=== PATIENT | female | born 1945 | race Caucasian/White ===

== ENCOUNTER → 2017-07-15 | Outpatient (CLI) | payer MEDICARE ==
[~2017-07-15] MED LIST: ACET500T13 PO; ASPI1TAB57 PO; CALC1TAB16 PO; COLA100C OR; ENOX40P SQ; FERR324T4 PO; FIBE625T10 PO; HYDR-3516 PO; IBUP200T47 PO; LEVO75TA3 PO; LEVO75TA42 PO; LOSA100T PO; METO50TA PO; MIRA33502 PO; MS C30TA5 PO; MULT-65 PO; NEXI40CA PO; OXYC-360 PO; PANT40TA3 PO; SIMV20 PO; SIMV20TA PO; SUCR1TAB PO; TOPR50TA PO; VITA100018 PO
[2017-07-15 08:40] LABS: AUTOMATED NEUTROPHIL # 3.3 TH/MM3 (1.8-7.7); BASOPHIL % 0.3 % (0.0-2.0); EOSINOPHIL # 0.2 TH/MM3 (0-0.4); EOSINOPHIL % 3.3 % (0.0-4.0); HEMATOCRIT 36.3 % (35.0-46.0); HEMOGLOBIN 12.2 GM/DL (11.6-15.3); LYMPH % 22.4 % (9.0-44.0); LYMPHOCYTE # 1.2 TH/MM3 (1.0-4.8); MEAN CORPUSCULAR HGB CONC 33.8 % (32.0-36.0); MEAN PLATELET VOLUME 7.4 FL (7.0-11.0); MONO % 9.7 % (0.0-8.0); MONOCYTE # 0.5 TH/MM3 (0-0.9); NEUT % 64.3 % (16.0-70.0); PLATELET COUNT 212 TH/MM3 (150-450); RED BLOOD COUNT 4.37 MIL/MM3 (4.00-5.30); RED CELL DISTRIBUTION WIDTH 15.3 % (11.6-17.2); WHITE BLOOD COUNT 5.2 TH/MM3 (4.0-11.0)
[2017-07-15 08:51] LABS: PROTHROMBIN TIME - PATIENT 10.6 SEC (9.8-11.6)
[2017-07-15 08:59] LABS: BILIRUBIN, URINE NEG (NEG); BLOOD, URINE MOD (NEG); GLUCOSE,URINE NEG (NEG); KETONE, URINE NEG (NEG); MUCUS URINE FEW /lpf (OCC); NITRITE,URINE NEG (NEG); PH, URINE 6.5 (5.0-8.5); SQUAMOUS EPITHELIAL CELL URINE <1 /hpf (0-5); URINE COLOR YELLOW (YELLW/STRAW); URINE LEUKOCYTE ESTERASE NEG (NEG)
[2017-07-15 09:05] LABS: ALBUMIN 3.6 GM/DL (3.4-5.0); ALT (GPT) 23 U/L (10-53); AST (GOT) 21 U/L (15-37); BICARBONATE 26.3 MEQ/L (21.0-32.0); BLOOD UREA NITROGEN 14 MG/DL (7-18); CALCIUM 9.2 MG/DL (8.5-10.1); CHLORIDE 105 MEQ/L (98-107); CREATININE 0.79 MG/DL (0.50-1.00); GLOMERULAR FILTRATION RATE 72 ML/MIN (>89); GLUCOSE,FASTING 101 MG/DL (74-99); SODIUM (NA) 140 MEQ/L (136-145)
[2017-07-15 09:08] LABS: ALKALINE PHOSPHATASE 72 U/L (45-117); TOTAL BILIRUBIN ADULT 0.9 MG/DL (0.2-1.0); TOTAL PROTEIN 7.3 GM/DL (6.4-8.2)
--- NOTE | 2017-07-15 09:48 | RADRPT ---
EXAM DATE: 07/15/2017 9:34 AM EDT AGE/SEX: 72 years / Female INDICATIONS: Evaluate for pneumonia, pneumothorax, or communicable disease. Pre op for lumbar nehal ctomy. CLINICAL DATA: This is the patient's initial encounter. Patient reports that signs and symptoms have been present for 1 day and indicates a pain score of 0/10. MEDICAL/SURGICAL HISTORY: Hypercholesterolemia. Irritable bowel syndrome. Gastroesophageal re flux disease. Thyroid disease. Gastric ulcer. Total knee replacement, left. Total knee replacemen t, right. COMPARISON: No prior [facility] exams available for comparison. FINDINGS: PA and lateral views of the chest demonstrate the lungs to be symmetrically aerated without evidence of mass, infiltrate or effusion. The cardiomediastinal contours are unremarkable. Osseous structures are intact. CONCLUSION: No acute cardiopulmonary disease. Electronically signed by: Giorgi Mejia MD 07/15/2017 9:47 AM EDT
--- NOTE | 2017-07-15 14:40 | EKG ---
Date Performed: 07/15/2017 Time Performed: 08:36:42 PTAGE: 72 years EKG: Sinus rhythm POSSIBLE RIGHT VENTRICULAR CONDUCTION DELAY BORDERLINE ECG NO PREVIOUS TRACING DOCTOR: Calvin Hinson Interpretating Date/Time 07/15/2017 14:40:05
== END ==
LOC: CPRE 08:01
PROVIDERS: ATTEND Neurological Surgery
DX: Z01.812 Encounter for preprocedural laboratory examination (principal); Z01.811 Encounter for preprocedural respiratory examination; Z01.810 Encounter for preprocedural cardiovascular examination; M48.062 Spinal stenosis, lumbar region with neurogenic claudication; R94.31 Abnormal electrocardiogram [ECG] [EKG]
CPT/HCPCS: 36415; 71046; 80053; 81001; 85025; 85610; 85730; 87640; 87641; 93005

== ENCOUNTER 2017-07-21 06:16 | Observation (INO) | payer MEDICARE ==
[~2017-07-21] VITALS: Ht 166.4 cm; Wt 84.7 kg
[~2017-07-21 06:16] MED LIST changes: -COLA100C OR; -ENOX40P SQ; -FERR324T4 PO; -HYDR-3516 PO; -LEVO75TA42 PO; -MIRA33502 PO; -MS C30TA5 PO; -NEXI40CA PO; -OXYC-360 PO; -SIMV20 PO; -SUCR1TAB PO; -TOPR50TA PO
[2017-07-21] MEDS ORDERED: METOPROLOL TARTRATE 25 MG TAB PO PRN (07:30)
[2017-07-21] MEDS ORDERED: LACTATED RINGER'S 1000 ML IV PRN (07:30)
[2017-07-21] MEDS ORDERED: SODIUM CHLORID 0.9% 500 ML IV PRN (07:30)
[2017-07-21] MEDS ORDERED: POVIDONE IODINE 5% (ANTISEPSIS KIT) 4 APPLICATIONS EACH NARE PRN (07:30)
[2017-07-21] MEDS ORDERED: CHLORHEXIDINE GLUCONATE 2 % 1 PACK (2 CLOTHS) TOPICAL PRN (07:30)
[2017-07-21] MEDS ORDERED: ARTIFICIAL TEARS OPTH OINT 3.5 APPLIC/3.5 GM TUBO ONE (07:47)
[2017-07-21] MEDS ORDERED: ACETAMINOPHEN 1000 MG/100 ML 100 ML IV ONE (07:48)
[2017-07-21] MEDS ORDERED: ceFAZolin 2 GM PREMIX 0 ML ONE (08:07)
[2017-07-21] MEDS ORDERED: SODIUM CHLOR 0.9% 250 ML INJ 250 ML ONE (08:07)
[2017-07-21] MEDS ORDERED: VANCOMYCIN HCL 1000 MG VIAL ONE (08:07)
[2017-07-21] MEDS ORDERED: THROMBIN (TOPICAL) 5,000 UNIT VIAL ONE (08:07)
[2017-07-21] MEDS ORDERED: methylPREDNISolone ACETATE 40 MG/ML VIAL ONE (08:07)
[2017-07-21] MEDS ORDERED: BUPIVACAINE/EPINEPHRINE 0.5% PF 10 ML VIAL ONE (08:07)
[2017-07-21] MEDS ORDERED: GENTAMICIN SULFATE 80 MG/2 ML VIAL ONE (08:08)
[2017-07-21] MEDS ORDERED: GELFOAM SIZE 100 ONE (08:08)
[2017-07-21] MEDS ORDERED: VANCOMYCIN 1 GM/200 ML PREMIX IV SCH (08:15)
--- NOTE | 2017-07-21 11:11 | PD.OP ---
Operative Report Date of Surgery: Jul 21, 2017 Preoperative Diagnosis: Lumbar spinal stenosis Postoperative Diagnosis: Lumbar spinal stenosis Procedure: L3-4, L4-5 right decompressive hemilaminectomy, mesiofatetectomy, foraminotomy, microsurgical resection of the disk Anesthesia: general Surgeon: Donovan Wray Front Maker(s): Savannah Arboleda Operation and Findings: INDICATIONS FOR THE SURGICAL PROCEDURE Ms Nino is a 72 year-old female who presented with intractable back pain and clinical evidence of right L4 and L5 lower extremity radiculopathy. She was found to have significant lumbar spinal stenosis with significant mass effect on the neural structures which correlated with the clinical symptoms. The patient has failed maximum nonsurgical management including multiple modalities of conservative treatment as well as pain management interventions by an interventional pain specialist. A surgical decompression was indicated as a last resort. The [id number] details of the procedure, indications, alternatives, risks and potential complications were fully discussed with the patient. The patient fully understood. All the questions were answered. No guarantees were given. The patient voiced requesting the procedure and provided informed consents. The patient was offered the alternative of delaying the procedure and continuing with nonsurgical management. DETAILS OF THE SURGICAL PROCEDURE After the induction of general anesthesia, endotracheal intubation was performed. A Arredondo catheter, bilateral MARCIAL hose and sequential compression devices were placed and kept throughout the procedure. The patient was positioned prone on a Ravin table over a Solomon frame. All pressure points were carefully padded with eggcrate mattress. The eyes were tapped shut after ointment was applied by the anesthesiologist to prevent corneal abrasion. A Kranthi hugger was placed over the exposed lower body to maintain control of the core body temperature. The lower lumbar region was prepped and draped in the usual sterile fashion. A spinal needle was placed for localization and an x- ray performed with a C-arm. A skin incision was made in the midline over the spinous processes L3-L5 with a #10 blade. Small subcutaneous bleeders were controlled with a bipolar and the dissection was carried out through the lumbar fascia exposing the spinous processes. A subperiostial dissection was performed with a Hahn elevator and a Bovie over the L3, L4, L5 spinous process lamina and facets. A microdiscectomy self-retaining retractor was placed on the incision and an x-ray was obtained with an instrument placed underneath the lamina of L4. At this point in the procedure the operating microscope was draped in the usual sterile fashion and brought to the field. The rest of the surgical procedure was performed using microsurgical dissection technique with exception of the closure. Once the level was confirmed, a decompressive laminectomy was performed at L3-4 , L4-5 on the right side using the TPS drill with an 4mm drill bit. A medial facetectomy was performed and the superior free border of the ligamentum flavum was dissected with a ligament dissector and removed with a thin footplate 2 mm Kerrison. The medial facetectomy was done and the L4 and L5 nerve roots were identified and followed towards their exit in the foramen. Epidural veins located laterally to the dural sac were coagulated with a bipolar and incised with microscissors. Gentle medial retraction of the dural sac allowed inspection of the disc space. The patient had severe facet arthropathy with hypertrhopy of the joint facets and ligamentum flavum resulting in mass effect over the dural sac and nerve roots. In addition, there was a broad-based disc protusion, contributing to the stenosis. The annulus fibrosus of the disc was coagulated with the bipolar and incised with an 11 blade. The extruded disc was carefully dissected from the surrounding tissue and removed with pituitary forceps. Then, a microdiscectomy was carried out in the standard fashion using straight and up-biting pituitary forceps. An excellent decompression of the dural sac and nerve root was achieved. The exit of the nerve root was inspected for residual disc fragments and hemostasis was secured with the bipolar. The incision was irrigated with a large amount of saline solution. A Valsalva maneuver failed to show any cerebrospinal fluid leak or bleeding. The decompression was assessed again and found to be satisfactory. The incision was then closed in layers. The fascia was closed with 0 Vicryl sutures in an interrupted fashion. The superficial fascia was closed with 0 Vicryl sutures. The fascia was infiltrated with 0.5% Marcaine with epinephrine 1:100,000 dilution. The subcutaneous tissue was irrigated then closed with 0 Vicryl and 3 -0 Vicryl. The skin was closed with 4-0 running subcuticular Vicryl. A sterile dressing was applied. At the end of the procedure, the sponge, needle and instrument counts were all correct. Estimated blood loss was less than 100 cc. No blood transfusion was given. No intraoperative complications occurred. The patient received prophylactic antibiotics. The patient was then extubated and transferred to the recovery room in stable condition. Donovan Wray MD Jul 21, 2017 11:11
[2017-07-21] MEDS ORDERED: ceFAZolin 2 GM PREMIX 50 ML IV SCH (11:15)
[2017-07-21] MEDS ORDERED: IBUPROFEN 200 MG TAB PO PRN (11:15)
[2017-07-21] MEDS ORDERED: ACETAMINOPHEN 500 MG CPLT NG PRN (11:15)
[2017-07-21] MEDS ORDERED: ACETAMINOPHEN 325 MG TAB PO PRN (11:15)
[2017-07-21] MEDS ORDERED: CALCIUM POLYCARBOPHIL 625 MG TAB PO PRN (11:15)
[2017-07-21] MEDS ORDERED: MORPHINE SULFATE 4 MG/ML INJ IV PUSH PRN ×2 (11:15)
[2017-07-21] MEDS ORDERED: ACETAMINOPHEN/HYDROcodone 325 MG/10 MG TAB PO PRN ×2 (11:15)
[2017-07-21] MEDS ORDERED: HYDR-3516 PO (11:27)
[2017-07-21] MEDS ORDERED: MIDAZOLAM HCL 2 MG/2 ML VIAL ONE (11:46)
--- NOTE | 2017-07-21 11:56 | RADRPT ---
EXAM DATE: 07/21/2017 11:43 AM EDT AGE/SEX: 72 years / Female INDICATIONS: L3-L4 and L4-L5 hemilaminectomy. Level localization. CLINICAL DATA: This is the patient's initial encounter. Patient reports that signs and symptoms have been present for 1 day and indicates a pain score of Nonresponsive. MEDICAL/SURGICAL HISTORY: Spinal stenosis. None. COMPARISON: No prior [facility] exams available for comparison. FINDINGS: Single lateral spot image obtained in the operating room during a procedure demonstrates instruments overlying the posterior elements at L4-L5. CONCLUSION: Estimates overlie the posterior elements at L4-L5. Electronically signed by: Vasquez Gonzalez MD 07/21/2017 11:55 AM EDT
[2017-07-21] MEDS ORDERED: *morphine SULFATE 8 MG/ML PERIprocedure ONLY ONE (12:03)
[2017-07-21] MEDS: NS + KCL 20 MEQ INJ 1,000 ML IV SCH ×2 (12:08→21:19)
[2017-07-21] MEDS ORDERED: DO NOT ADM ANY ANTICOAGULANT DRUGS PRN (12:15)
[2017-07-21 20:00] VITALS: BP 139/82; PULSE 83; RESP 18; TEMP 97.4; O2SAT 96
[2017-07-21] MEDS: DOCUSATE SODIUM 100 MG CAP PO SCH (21:18)
[2017-07-21] MEDS: VANCOMYCIN INJ 1,000 MG in SODIUM CHLOR 0.9% 250 ML INJ 250 ML IV SCH (21:19)
[2017-07-22] VITALS: BP 122/60; PULSE 70; RESP 20; TEMP 98.3; O2SAT 96
[2017-07-22 04:00] VITALS: BP 117/60; PULSE 75; RESP 20; TEMP 98.3; O2SAT 98
[2017-07-22] MEDS ORDERED: LEVOTHYROXINE SODIUM 75 MCG TAB PO SCH (06:00)
[2017-07-22 08:10] VITALS: BP 127/75; PULSE 79; RESP 17; TEMP 97.3; O2SAT 97
[2017-07-22] MEDS: NS + KCL 20 MEQ INJ 1,000 ML IV SCH (09:00)
[2017-07-22] MEDS ORDERED: MULTIVITAMIN TAB PO SCH (09:00)
[2017-07-22] MEDS ORDERED: CALCIUM/VITAMIN D 250 MG/125 U TAB PO SCH (09:00)
[2017-07-22] MEDS ORDERED: NON-FORMULARY DRUG (Multiple Vitamin (Multi-Vitamin Daily) 1 TAB) PO SCH (09:00)
[2017-07-22] MEDS ORDERED: NON-FORMULARY DRUG (Simvastatin 20 MG) PO SCH (09:00)
[2017-07-22] MEDS ORDERED: METOPROLOL TARTRATE 50 MG TAB PO SCH (09:00)
[2017-07-22] MEDS ORDERED: PANTOPRAZOLE SOD 40 MG DELAYED RELEASE TAB PO SCH ×2 (09:00)
[2017-07-22] MEDS ORDERED: CHOLECALCIFEROL (VIT D3) 1000 UNIT TAB PO SCH (09:00)
[2017-07-22] MEDS ORDERED: LOSARTAN 50 MG TAB PO SCH (09:00)
[2017-07-22] MEDS ORDERED: PRAVASTATIN SOD 40 MG TAB PO SCH (09:00)
[2017-07-22] MEDS ORDERED: CALCIUM CITRATE VITAMIN D PO SCH (09:00)
[2017-07-22] MEDS: VANCOMYCIN INJ 1,000 MG in SODIUM CHLOR 0.9% 250 ML INJ 250 ML IV SCH (09:06)
[2017-07-22] MEDS: DOCUSATE SODIUM 100 MG CAP PO SCH (09:07)
--- NOTE | 2017-07-22 09:43 | HHI.DCPOC ---
Discharge Care Plan Diagnosis: (1) S/P lumbar laminectomy Goals to Promote Your Health * To prevent worsening of your condition and complications * To maintain your health at the optimal level Directions to Meet Your Goals Take your medications as prescribed Follow your dietary instruction Follow activity as directed Keep your appointments as scheduled Take your immunizations and boosters as scheduled If your symptoms worsen call your PCP, if no PCP go to Urgent Care Center or Emergency Room Smoking is Dangerous to Your Health. Avoid second hand smoke Call the 24-hour hour crisis hotline for domestic abuse at Cami White Jul 22, 2017 09:43
--- NOTE | 2017-07-22 09:45 | HHI.DS ---
Discharge Summary Admission Date Jul 21, 2017 at 11:05 Discharge Date: Jul 22, 2017 Admitting Diagnosis s/p lumbar laminectomy (1) S/P lumbar laminectomy ICD Code: Z98.890 - Other specified postprocedural states Brief History Ms Nino is a 72 year-old female who presented with intractable back pain and clinical evidence of right L4 and L5 lower extremity radiculopathy. She was found to have significant lumbar spinal stenosis with significant mass effect on the neural structures which correlated with the clinical symptoms. The patient has failed maximum nonsurgical management including multiple modalities of conservative treatment as well as pain management interventions by an interventional pain specialist. A surgical decompression was indicated as a last resort. Imaging Last Impressions Lumbar Spine X-Ray 07/21/17 0000 Signed Impressions: CONCLUSION: Estimates overlie the posterior elements at L4-L5. Hospital Course Ms. Nino underwent a L3-4, L4-5 right decompressive hemilaminectomy, mesiofatetectomy, foraminotomy, microsurgical resection of the disk on Jul 21, 2017 for Lumbar spinal stenosis. Her surgery went well without complications. She is discharged home in stable conditions. Pt Condition on Discharge: Stable Discharge Disposition: Discharge Home Discharge Instructions DIET: Follow Instructions for: Heart Healthy Diet ACTIVITIES You can perform: Weight Bearing As Katja ADDITIONAL Activity Instructio: Avoid strenuous activities, heavy lifting over 5 lbs, overhead activities, repetitive bending, twisting, pushing, pulling or any activities which might result in stress over the spine. Avoid situation that will put at risk for falls. Use assistive device as needed for walking. Wear provided back brace when out of bed. New Medications: Hydrocodone-Acetaminophen (Hydrocodone-Acetaminophen) 5-325 mg Tab 1 TAB PO Q8HR PRN for PAIN, #60 TAB 0 Refills Continued Medications: Acetaminophen (APAP Extra Strength) 500 Mg Tab 500 MG PO Q4-6H PRN for PAIN SCALE 1 TO 10, TAB Aspirin DR (Aspirin 81) 81 Mg Tabdr 81 MG PO DAILY, TAB 0 Refills Calcium Citrate-Vitamin D (Calcium Citrate-Vitamin D) 315-200 Mg-Unit Tab 1 TAB PO DAILY for Calcium Supplement, TAB 0 Refills Calcium Polycarbophil (Fiber) 625 Mg Tab 1250 MG PO DAILY PRN for CONSTIPATION, TAB 0 Refills Cholecalciferol (Vitamin D3) 1,000 Unit Tab 1000 UNITS PO DAILY for Nutritional Supplement, #1 BOTTLE 0 Refills Ibuprofen (Ibuprofen) 200 Mg Tab 200 MG PO Q6H PRN for PAIN SCALE 1 TO 10, TAB 0 Refills Levothyroxine (Levothyroxine) 75 Mcg Tab 75 MCG PO DAILY for Thyroid, #30 TAB 0 Refills Losartan (Losartan) 100 Mg Tab 100 MG PO DAILY for Blood Pressure Management, #30 TAB 0 Refills Metoprolol Tartrate (Metoprolol Tartrate) 50 Mg Tab 50 MG PO DAILY, #30 TAB 0 Refills Multiple Vitamin (Multi-Vitamin Daily) 1 Tab Tab 1 TAB PO DAILY for Nutritional Supplement, TAB 0 Refills Pantoprazole (Pantoprazole) 40 Mg Tab 40 MG PO DAILY for Reflux, #30 TAB 0 Refills Simvastatin (Simvastatin) 20 Mg Tab 20 MG PO DAILY for Cholesterol Management, #30 TAB 0 Refills Cami White Jul 22, 2017 09:45
== END 2017-07-22 11:32 | disposition home or self-care (01) ==
LOC: HSDC 06:16 → HSDI 11:05 → N06B 16:40
PROVIDERS: ADMIT Neurological Surgery; ATTEND Neurological Surgery
DX: M48.061 Spinal stenosis, lumbar region without neurogenic claudication (principal); M54.16 Radiculopathy, lumbar region; I10 Essential (primary) hypertension; E78.5 Hyperlipidemia, unspecified
CPT/HCPCS: 00630; 63030; 63035; 72020; 76000; 94150; 96365; 96366; 96376; 97162; G0378; G8987; G8988; J0131; J1030; J1580; J2250; J2270; J3010; J3370; J3480; J7050; J7120; L0627; J0690